=== PATIENT | male | born 1955 | race Caucasian/White ===

== ENCOUNTER 2018-01-31 16:20 | Emergency (ER) | payer BC, SELFPAY ==
[2018-01-31] VITALS (24 sets, daily range): BP systolic 139–168; BP diastolic 78–135; PULSE 62–73; RESP 6–16; TEMP 36.7; O2SAT 97–100
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
[2018-01-31] MEDS: Ibuprofen 600 MG TAB PO (18:20)
== END 2018-01-31 19:40 | disposition home or self-care (01) ==
PROVIDERS: Emergency Provider Student in an Organized Health Care Education/Training Program; PCP Family Medicine Adult Medicine
DX: S00.81XA Abrasion of other part of head, initial encounter (principal); S13.4XXA Sprain of ligaments of cervical spine, initial encounter; J32.9 Chronic sinusitis, unspecified; V18.0XXA Pedal cycle driver injured in noncollision transport accident in nontraffic accident, initial encounter; Y93.55 Activity, bike riding
CPT/HCPCS: 36415; 99284; 70450; 70486; 72125; L0172

== ENCOUNTER 2021-12-13 15:38 | Outpatient (REF) | payer BC, SELFPAY ==
[2021-12-13 14:44] LABS: HCT 40.3 % (40.0-50.0); HGB 13.6 g/dL (13.5-17.5); MCH 31.9 pg (27.0-33.0); MCHC 33.7 % (32.0-36.0); MCV 95 fL (80-95); MPV 9.5 fL (8.0-11.0); Platelet Count 254 10^3/uL (130-400); RBC 4.26 10^6/uL (4.36-5.78); RDW 12.2 % (11.8-14.1); RDW-SD 42.5 fL; WBC 4.38 10^3/uL (4.4-10.8)
[2021-12-13 15:10] LABS: Anion Gap 3.9 mmol/L (3-11); BUN 12 mg/dL (7-18); CO2 33.1 mmol/L (21.0-32.0); CREATININE 0.7 mg/dL (0.70-1.30); Calcium 8.8 mg/dL (8.5-10.1); Calculated LDL 86 mg/dL (<100); Chloride 103 mmol/L (98-107); Cholesterol 158 mg/dL (<200); Glucose 88 mg/dL (74-106); HDL Cholesterol 61 mg/dL (40-60); Potassium 4.4 mmol/L (3.5-5.1); Sodium 140 mmol/L (136-145); Triglyceride 58 mg/dL (<150)
[2021-12-14 09:37] LABS: PSA, Screening 2.5 ng/mL (<=4.5)
== END 2021-12-13 15:39 | disposition home or self-care (01) ==
LOC: NCHCN 15:38
PROVIDERS: PCP Physician Assistant; Visit Provider Physician Assistant
DX: Z00.00 Encounter for general adult medical examination without abnormal findings (principal); R13.10 Dysphagia, unspecified; M25.774 Osteophyte, right foot; Z12.5 Encounter for screening for malignant neoplasm of prostate; Z13.220 Encounter for screening for lipoid disorders
CPT/HCPCS: 80048; 80061; 84153; 85027

== ENCOUNTER → 2021-12-15 01:57 | Outpatient (CLI) | payer BC, SELFPAY ==
--- NOTE | 2021-12-15 | DI.RAD_ITS ---
Exam(s) XR FOOT RT COMPLETE EXAM: XR FOOT RT COMPLETE CLINICAL HISTORY: RT FOOT PAIN, M79.671,BONY PROTRUBERANCE OVER TALUS. TECHNIQUE: 2D digital imaging was performed of the right foot. Three images were obtained. AP, obl ique and lateral views were obtained. COMPARISON: No previous for comparison. FINDINGS: BONES: No acute fracture is present. No bony destructive lesion is seen. There is a spur on the dorsa l aspect of the distal talus. On the lateral view there are findings raising the question of a taloc alcaneal coalition. JOINTS: No dislocation present. Hypertrophic changes are seen at the 1st tarsometatarsal joint. SOFT TISSUE: Normal. IMPRESSION: 1. Moderate-sized spur arising from the dorsal aspect of the distal talus. 2. Findings suspicious for talocalcaneal coalition. A CT scan of the foot may be obtained for furthe r evaluation. DATA REPOSITORY: RADIATION DOSE DELIVERED:
== END ==
PROVIDERS: PCP Physician Assistant; Visit Provider Physician Assistant
DX: M77.9 Enthesopathy, unspecified (principal); M79.671 Pain in right foot
CPT/HCPCS: 73630

== ENCOUNTER 2022-12-27 16:59 | Outpatient (REF) | payer MEDICARE, SELFPAY ==
[2022-12-27 17:02] LABS: Anion Gap 5.3 mmol/L (3-11); BUN 13 mg/dL (7-18); CO2 30.7 mmol/L (21.0-32.0); CREATININE 0.8 mg/dL (0.70-1.30); Calculated LDL 91 mg/dL (<100); Chloride 106 mmol/L (98-107); Cholesterol 165 mg/dL (<200); Estimated GFR 98.83 (mL/min/1.73m2); Glucose 91 mg/dL (74-106); HDL Cholesterol 67 mg/dL (40-60); Potassium 3.9 mmol/L (3.5-5.1); Sodium 142 mmol/L (136-145); Triglyceride 36 mg/dL (<150)
--- OUTSIDE RECORDS SUMMARY | 2022-12-27 17:04 | XMS_ITS | CCD ---
Author Name Unknown Address [address] [place] [address] [id number] Organization Unknown Address [address], [place] [id number] Care Team Providers Care Licensed Physical Therapy Assistant Name Role Phone HANG CORONADO Attending Physician [phone] [phone] HANG CORONADO Rounding (Secondary) Physicia n [phone] Vital Signs Unknown or Not Available. Allergies Unknown or Not Available. Procedures Unknown or Not Available. History of Immunizations Unknown or Not Available. Problems Unknown or Not Available. Results Unknown or Not Available. Active Medications Unknown or Not Available. Medications Administered During Visit Unknown or Not Available. Encounters Unknown or Not Available. Social History Unknown or Not Available. Patient Decision Aids Unknown or Not Available. Discharge Instructions You were admitted to [facility] on 12/04/2022 00:00 You were discharged from [facility] on 12/04/2022 00:00 Should you have any questions prior to discharge, please contact a member of your healthcare team. If you have left the hospital and have any questions, please contact your primary care physician. Chief Complaint and Reason For Visit Unknown or Not Available. Function Status Unknown or Not Available. Plan of Care Unknown or Not Available. Referral/Transition of Care Unknown or Not Available.
== END 2022-12-27 17:00 | disposition home or self-care (01) ==
LOC: NCHCN 16:59
PROVIDERS: PCP Physician Assistant; Visit Provider Physician Assistant
DX: Z00.00 Encounter for general adult medical examination without abnormal findings (principal); Z12.5 Encounter for screening for malignant neoplasm of prostate
CPT/HCPCS: 80048; 80061; 84153

== ENCOUNTER 2023-10-17 11:23 | Outpatient (REF) | payer MEDICARE, SELFPAY ==
[2023-10-17 13:48] LABS: HCT 42.2 % (40.0-50.0); HGB 13.9 g/dL (13.5-17.5); MCHC 32.9 % (32.0-36.0); MCV 97 fL (80-95); MPV 10.3 fL (8.0-11.0); Platelet Count 165 10^3/uL (130-400); RBC 4.35 10^6/uL (4.36-5.78); RDW 13.2 % (11.8-14.1); RDW-SD 47.4 fL; WBC 3.57 10^3/uL (4.4-10.8)
[2023-10-17 14:10] LABS: Anion Gap 9.9 mmol/L (3-11); BUN 13 mg/dL (7-18); CO2 30.1 mmol/L (21.0-32.0); CREATININE 0.8 mg/dL (0.70-1.30); Calcium 9.3 mg/dL (8.5-10.1); Calculated LDL 86 mg/dL (<100); Chloride 105 mmol/L (98-107); Cholesterol 172 mg/dL (<200); Estimated GFR 98.21 (mL/min/1.73m2); Glucose 85 mg/dL (74-106); HDL Cholesterol 78 mg/dL (40-60); Potassium 4.2 mmol/L (3.5-5.1); Sodium 145 mmol/L (136-145); Triglyceride 41 mg/dL (<150)
[2023-10-17 23:34] LABS: PSA, Screening 3.6 ng/mL (<=4.5)
== END 2023-10-17 11:24 | disposition home or self-care (01) ==
LOC: NCHCN 11:23
PROVIDERS: PCP Physician Assistant; Visit Provider Physician Assistant
DX: I10 Essential (primary) hypertension (principal)
CPT/HCPCS: 80048; 80061; 84153; 85027

== ENCOUNTER 2023-12-04 14:47 | Outpatient (CLI) | payer MEDICARE, SELFPAY ==
--- NOTE | 2023-12-04 13:30 | DI.RAD_ITS ---
Exam(s) XR ELBOW LT COMPLETE EXAM: XR ELBOW LT COMPLETE CLINICAL HISTORY: elbow pain. TECHNIQUE: 2D digital imaging was performed. Three views. COMPARISON: No exams were available for comparison FINDINGS: BONES: No acute fracture is present. No bony destructive lesion is seen. Bony density seen posterior to the olecranon is nonunited but appears chronic. Spurring noted at both epicondyles. Spurring at coronoid process.. JOINTS: The elbow is normally aligned. No joint effusion is seen. SOFT TISSUE: Normal. IMPRESSION: Bony fragment is adjacent to olecranon appears chronic. DATA REPOSITORY: RADIATION DOSE DELIVERED:
== END 2023-12-04 14:48 | disposition home or self-care (01) ==
LOC: DIORS 14:48
PROVIDERS: PCP Physician Assistant; Referring Provider Physical Therapist; Visit Provider Student in an Organized Health Care Education/Training Program
DX: S46.312A Strain of muscle, fascia and tendon of triceps, left arm, initial encounter; X58.XXXA Exposure to other specified factors, initial encounter
CPT/HCPCS: 99203; 73080

== ENCOUNTER → 2023-12-18 02:23 | Outpatient (CLI) | payer MEDICARE, SELFPAY ==
--- NOTE | 2023-12-18 06:45 | DI.MRI_ITS ---
Exam(s) MR UPPER JOINT LT WO EXAM: MR UPPER JOINT LT WO CLINICAL HISTORY: further evaluation of triceps insertion,FX WITH GAP,RUPTURE LT TRICEPS TEND TECHNIQUE: Multiplanar multisequence MRI was performed without intravenous contrast. COMPARISON: CR XR ELBOW LT COMPLETE from 12/04/2023 FINDINGS: MARROW: There is intraosseous edema evident within the posterior aspect of the olecranon fossa as wel l as within an adjacent but separate osteophytic density corresponding to what is seen on recent x-ra ys and what is probably an avulsed enthesophyte at this level. See below TRICEPS discussion. Radial head appears unremarkable. Capitellum unremarkable. Coronoid process of the proximal ulna ap pears unremarkable. ELBOW JOINT: There is no evidence of elbow joint effusion.No significant cartilage loss nor osteochon dral defect and there is no evidence of loose intra-articular body. There are no osteophytes. EPICONDYLES: Some increased signal is seen in the common extensor tendon adjacent to the lateral epic ondyle consistent mild epicondylitis. ULNAR COLLATERAL LIGAMENT: The anterior band which extends from the medial epicondyle to the sublime tubercle of the coronoid process of the ulna is intact. This structure is the strongest ligament in t he elbow and is the main opponent to severe valgus stress. RADIAL COLLATERAL LIGAMENT: Intact TENDONS: The biceps tendon is intact. The brachialis tendon is intact. Triceps tendon: There is an osteophytic density in the distal triceps tendon which exhibits intraosse ous edema and there is T2 bright signal within the distal triceps tendon consistent with partial tear ing on its medial aspect. I suspect that this is an avulsed enthesophyte at this level. The lateral aspect of the tendon attachment to the posterior olecranon on appears intact as does the most medial aspect of the tendon. The central aspect of the tendon appears torn at the attachment site to the p osterior olecranon.. CUBITAL TUNNEL/ULNAR NERVE: The ulnar nerve appears unremarkable beneath the cubital tunnel retinacul um/ arcuate ligament and posterior to the medial epicondyle. There is no evidence of arthritic spur arising from the epicondyle nor olecranon causing impingement on the ulnar nerve. There is no eviden ce of accessory anconeus muscle causing impingement at this level. There is also no evidence of soft tissue mass nor ganglia on cyst causing impingement at this level. IMPRESSION: 1. Main findings are in the posterior aspect of the elbow where there is tear signal within the dista l triceps tendon at its attachment to the posterior olecranon on. The most medial and lateral aspect s of the triceps tendon still appear attached to the posterior aspect of the olecranon fossa. The ce ntral aspect of the tendon attachment (which is associated with the osteophytic density exhibits tear signal. There is also increased signal within the actual osteophytic density and interposed between this osteophytic density and the parent bone of the posterior olecranon. Appearance is most probabl y that of a posterior enthesophyte at this level which was avulsed and on to which the central aspect of the triceps tendon attaches. There is no retraction of the tendon. 2. Biceps tendon is intact. 3. Findings of mild lateral epicondylitis incidentally noted. DATA REPOSITORY:
== END ==
PROVIDERS: PCP Physician Assistant; Visit Provider Student in an Organized Health Care Education/Training Program
DX: S46.312A Strain of muscle, fascia and tendon of triceps, left arm, initial encounter (principal); M77.10 Lateral epicondylitis, unspecified elbow
CPT/HCPCS: 73221

== ENCOUNTER → 2023-12-19 13:28 | Outpatient (BNVA) | payer MEDICARE, SELFPAY | PROVIDERS: PCP Physician Assistant; Referring Provider Physician Assistant; Visit Provider Student in an Organized Health Care Education/Training Program | DX: S46.312A Strain of muscle, fascia and tendon of triceps, left arm, initial encounter (principal); X58.XXXA Exposure to other specified factors, initial encounter | CPT/HCPCS: 99213 ==

== ENCOUNTER 2024-01-11 09:36 | Day surgery (SDC) | payer MEDICARE, SELFPAY ==
--- NOTE | 2024-01-10 18:27 | W.ANESPRE ---
General Info Date of Service Date Performed: 01/11/24 Height: 6 ft 3 in Weight: 85.275 kg Body Mass Index (BMI): 23.5 Surgical Procedure: Operation Date: 01/11/24 10:25 Proposed Procedure Side Surgeon p Distal Triceps Tendon Repair Left Bernard Amaral MD Meds Allergies and Home Medications Allergies Allergy/AdvReac Type Severity Reaction Status Date / Time sulfamethoxazole (From AdvReac Intermediate fever Verified 01/10/24 11:59 Bactrim) trimethoprim (From Bactrim) AdvReac Intermediate fever Verified 01/10/24 11:59 Home Medication ?Medication ?Instructions ?Recorded naproxen 250 mg tablet 250 mg PO BID PRN 01/26/21 multivitamin 1 tab PO DAILY 02/27/22 omeprazole 40 mg capsule,delayed 40 mg PO DAILY 01/01/23 release fluticasone propionate 50 2 spray intranasal DAILY #16 grams 04/30/23 mcg/actuation nasal spray,suspension (Flonase Allergy Relief) lisinopril 5 mg tablet 5 mg PO DAILY 12/04/23 Current Visit Medications: Current Medications Generic Name Dose Route Start Last Admin Trade Name Freq PRN Reason Stop Dose Admin Ringer's Solution 1,000 mls @ 30 mls/hr 01/11/24 06:00 IV 01/11/24 23:59 INFUSION ROCKY Cefazolin Sodium/Dextrose 2 gm in 50 mls @ 100 mls/hr 01/11/24 06:00 Ancef Duplex IVPB 01/11/24 23:59 PREOP ROCKY Tranexamic Acid/Sodium Chloride 1,000 mg in 100 mls @ 600 mls/hr 01/11/24 06:00 IVPB 01/11/24 23:59 PREOP ROCKY IV Miscellaneous Supplies 1 each 01/11/24 06:00 Iv Access IV 01/11/24 23:59 DIRECTED ROCKY Sodium Chloride 0 ml 01/11/24 06:00 Normal Saline Flush 10 Ml Syr IV 01/11/24 23:59 PRN PRN Sodium Chloride 0 ml 01/11/24 06:00 Normal Saline 10 Ml Vial IJ 01/11/24 23:59 DIRECTED PRN Sterile Water 0 ml 01/11/24 06:00 Water,Injection,Sterile 10 Ml Vial IJ 01/11/24 23:59 DIRECTED PRN PFSH Active Problems Active Problems: Problem Status Onset Code Rupture of left triceps tendon Acute S46.312A Left elbow pain Acute M25.522 Plantar wart Acute B07.0 Pulsatile tinnitus, left ear Acute H93.A2 Medical History Medical History Impacted cerumen, left ear Nasal obstruction Obstructive sleep apnea syndrome Chronic disease of ear BPH (benign prostatic hyperplasia) GERD (gastroesophageal reflux disease) Sensorineural hearing loss (SNHL) Mixed hearing loss, bilateral Central perforation of tympanic membrane, left ear Chronic rhinitis Dysfunction of right eustachian tube Surgical History Surgical History Hx of neck surgery left mastoidectomy Hx of esophagogastroduodenoscopy Hx of repair of rotator cuff Hx of Achilles tendon repair History of tonsillectomy and adenoidectomy History of ear surgery right ossicular reconstruction with cartilage graft tympanoplasty Hx of myringotomy with PE tubes bilaterally 1965 Tobacco Smoking/Tobacco Use Status: Never Alcohol Alcohol Intake: never Substance Use Substance use: Never Substance use type: does not use Vital Signs and Lab Results Vital Signs Most Recent Vital Signs in EMR: Temp Pulse Resp BP Pulse Ox 36.5 C 63 16 142/91 H 100 01/11/24 09:38 01/11/24 09:38 01/11/24 09:38 01/11/24 09:38 01/11/24 09:38 Lab Results Blood Type / Crossmatch: No Data to Display Complete Blood Count: No Data to Display Complete Metabolic Panel: No Data to Display Liver Function Panel: No Data to Display Coagulation Panel: No Data to Display Cardiac Panel: No Data to Display Arterial Blood Gas: No Data to Display Venous Blood Gas: No Data to Display Pancreas Panel: No Data to Display Thyroid Panel: No Data to Display Infectious Disease: No Data to Display Blood Cultures: No Data to Display Toxicology Panel: No Data to Display Anesthesia Assessment and Plan Anesthesia History Personal History: Unknown Anesthesia History Family History: No Family History of Anesthesia Complications Exercise Tolerance Exercise Tolerance: Metabolic Equivalents>4 Cardiac & Pulmonary Exam Cardiac Exam: Normal S1/S2 Heart Sounds Pulmonary Exam: Clear Bilateral Breath Sounds Implantable Cardiac Device Does patient have a Pacemaker or an ICD?: No Airway Exam Known Difficult Airway: No Mallampati Class: 4 Mouth Opening: Narrow (< 3cm) Thyromental Distance: Less than 3 cm Neck Range of Motion: Full ROM Neck Circumference: Normal Teeth Condition: Normal Dentition ASA Classification ASA Score: ASA 2 Emergency Case?: No NPO Status NPO Status: NPO Clears >2 hours, Solids >8 hours Anesthesia Plan Resuscitation Status: Full Code Anesthesia Technique: General Anesthesia Airway Planned: Endotracheal Tube Pain Management: Surgeon and patient request nerve block Monitors Used: Standard Monitors Preoperative Comments:: 68 yo male for tricep repair Sig PMHx: HTN (lisinopril), MITZI, GERD (omeprazole. well controlled, but sleeps with a wedge), never smoker/etoh. Plan: GAETT, supraclavicular block.
[2024-01-11] VITALS (29 sets, daily range): BP systolic 123–179; BP diastolic 74–93; PULSE 57–82; RESP 8–20; TEMP 35.8–36.5; O2SAT 95–100; BMI 23.5
--- NOTE | 2024-01-11 07:19 | W.PM.DSUDISC ---
Date of service: 01/11/24 Time of Service: 14:00 Discharge Plan Disposition Patient Disposition: Home Condition: Stable Discharge Details Attending Provider: Bernard Amaral Primary Care Provider: Maurisio Mesa Home Meds and New Rx's Prescriptions: New naproxen 250 mg tablet 250 - 500 mg PO BID PRNQty: 30 0RF Rx Instructions: take with a meal oxycodone 5 mg tablet 5 - 10 mg PO Q4H MDD 30 mg PRN (Reason: moderate to severe pain) Qty: 12 0RF Continued fluticasone propionate [Flonase Allergy Relief] 50 mcg/actuation spray,suspension 2 spray intranasal DAILY Qty: 16 12RF Rx Instructions: administer into each nostril lisinopril 5 mg tablet 5 mg PO DAILY naproxen 250 mg tablet 250 mg PO BID PRN multivitamin Tablet 1 tab PO DAILY omeprazole 40 mg capsule,delayed release(DR/EC) 40 mg PO DAILY Discharge Instructions Additional Instructions: Surgery: Left distal triceps tendon repair Activity: Non-weightbearing left upper extremity for 6 weeks. Maintain elbow bent about 90 degrees in splint until follow-up. Encourage wrist, hand, and finger range of motion to prevent stiffness and improve circulation. Recommend elevation to minimize swelling and discomfort. Transition to hinged elbow brace at follow-up. A physical therapy prescription will be sent to start in about 3 weeks. Protocol? No ACTIVE elbow extension for 6 weeks Gradually increase flexion about 10 degrees per week from 90 degrees at week 2 to full flexion around postop week 8 Start strengthening at 10-12 weeks postop (isometrics okay in full extension after 8 weeks) Concentric strengthening at 3 months, isometric at 4 months, and sports around 6 months postop. Prescriptions: Naproxen 250 mg take 1-2 every 12 hours with a meal as needed for moderate pain Oxycodone 5 mg take 1-2 every 4-6 hours as needed for severe pain You may use xzoo-qib-bxemvyn Tylenol (acetaminophen) as needed for mild pain. These pain medications may be taken all at once or in different combinations as needed. Also, recommend Colace (docusate) as a stool softener as surgery and pain medicine cause constipation. You may try mjry-ihz-thgbajf diphenhydramine (Benadryl) 25-50 mg nightly as a sleep aid Dressings: Leave splint and dressing in place until follow-up. Keep clean and dry at all times. You may loosen/adjust Stewart bandage as as needed for comfort. Follow-up: 10-[address] Amaral You may take off the leg compression stockings this evening at home. You may also leave them on a few days longer if you have a history of leg swelling or edema. Let us know right away if you develop any redness, drainage, fevers, chest pain, or trouble breathing. Do not drink alcohol or drive for at least 24 hours after anesthesia. Please call the office during business hours with any questions or concerns. Stand Alone Forms: Anesthesia Discharge Inst., Anes.Nerve Block Instructions, Adeel Granado (DSU) Referrals: Bernard Amaral MD [ [facility] STAFF PHYSICIAN] - 01/22/24 1:30 pm Discharge Orders Discharge Orders: Discharge Order (Routine); Ordered 01/11/24 Ordered By: Stephanie Teague DS: Diagnosis Discharge Diagnosis (1) Rupture of left triceps tendon: Status: Acute
--- NOTE | 2024-01-11 08:20 | ROE_ITS ---
Date of service: 01/11/24 Time of Service: 11:30 Operative Note Operative Note DATE OF PROCEDURE: 01/11/24 PRE-OP DIAGNOSIS: 1. Left elbow High-grade distal triceps tendon rupture through enthesophyte fracture 2. Olecranon bursitis POST-OP DIAGNOSIS: same PROCEDURE: 1. Left elbow distal triceps tendon repair, CPT #93921 2. Excision of olecranon bursa, CPT # 76512 SURGEON: Bernard Amaral [employer] MACHINE OPERATOR: Stephanie Teague ANESTHESIA TYPE: Local By Surgeon, General LMA/ETT and Primary Nerve Block Refer to Anesthesia Record ESTIMATED BLOOD LOSS: 5 COMPLICATIONS: None Patient was transported to: PACU Patient's condition: stable Implants: 4.75mm Arthrex biocomposite knotless swivelock x1 Indications: Please see complete medical record for details. Findings: Large olecranon enthesophyte fracture causing 50-75%+ distal triceps tendon disruption centrally and superficially from the olecranon. Moderate overlying olecranon bursitis. Procedure Description: In the operating room, general anesthesia was induced. The patient was positioned lateral on the operating room table. All bony prominences were well- padded. Preoperative antibiotics were administered. The Left elbow was prepped and draped in the usual sterile fashion. The correct patient, procedure, and side of the procedure were all verified prior to incision. A longitudinal incision was preinjected with 30 cc of 0.25 bupivacaine containing epinephrine about the distal triceps, curving radially around the obvious olecranon bony prominence, and then extending distally in line with the ulna slightly into the proximal forearm. Skin was opened exposing a moderately abundant and inflamed olecranon bursa. The margin of the bursa were dissected out and the bursitis was removed. The enthesophyte fracture was readily ident ified and separate from the remainder of the olecranon. The distal triceps was intact to this large bony fragment. Sharp dissection was used to shell out this piece of bone while maintaining triceps tendon length for repair. The relatively large fracture fragment was removed in entirety and about 2cm long by 15 mm wide by 5-8 mm thick. The olecranon was then smoothed and contoured to remove any residual dorsal bony prominences as well as medially and laterally. The triceps tendon was debrided lightly to good tissue quality and the central area of defect on the insertion on the olecranon was prepared and abraded to optimize bone and tendon healing. An Arthrex suture tape was started deeply in the tendon over the repair footprint and whipstitched proximally and then across the tendon and back down distally exiting at the footprint with the other tail. A second suture tape was run more superficially about the defect broadly medial to lateral with the tails exiting centrally deeply. The 4 suture tails had good tissue hold and reduction of the tendon to the prepared bony bed. The tendon was retracted with the sutures, the central part of the tendon footprint was prepared for the suture anchor with the 2.5 mm drill to the 20 mm depth followed by the tap. The triceps repair sutures were then loaded on the 4.75 mm SwiveLock anchor, which was deployed with excellent tension and fixation strength on the tendon. The remaining in the knotless repair mechanism was used to minimize the residual tendon defect owing to the large fragment excision incorporating the superficial tissue from the medial and lateral and then shuttled back through the knotless anchor eyelet mechanism. The repair was inspected and stable past 90 degrees of elbow flexion without any displacement or gapping. Care was taken to ensure there was no residual bony or tendon prominence about the posterior elbow. The wound was copiously irrigated normal saline. Subcutaneous tissue was closed with 2-0 Monocryl buried interrupted. Skin was closed with 3-0 Monocryl subcuticular running. Steri-Strips applied across the incision followed by Xeroform, 4 x 4 gauze, and sterile soft roll. A long-arm posterior plaster splint was then applied maintaining the elbow in about 90 degrees of flexion and forearm in neutral rotation. The patient awoke from anesthesia without complication and was transferred to the recovery room in stable fashion.
[2024-01-11] MEDS: Lactated Ringers 1,000 ML 30 ML IV (10:19)
--- NOTE | 2024-01-11 10:54 | W.ANESNERVE ---
Nerve Block Single Injection Procedure Date and Time Date Performed: 01/11/24 Procedure Start: 10:40 Location Where Procedure Performed Procedure Location: Day Surgery Unit Reason Performed: Postoperative Analgesia Requesting Provider: Bernard Amaral Timeout Performed Timeout Performed: Yes Monitoring Used ECG, Blood Pressure and SpO2 Sterility Sterility: Hand Hygiene, Surgical Cap, Surgical Mask, Sterile Gloves and Chlorhexidine Sedation Given During Procedure Sedation Given (Indicate Dose Given): Versed IV Dose:: 2 mg Patient Mental Status Patient Mental Status: Sedate with meaningful communication Nerve Block 1st Nerve Block: Laterality: Left Block Type: Supraclavicular Ultrasound Image Saved?: Yes Needle / Catheter Used: 100mm SonoPlex II Local Anesthetic Bolus (Indicate Dose Given): Lidocaine used for local infiltration of skin, Bupivacaine 0.5% Dose:: 10 mL and Exparel Dose:: 10 mL Additives (Indicate Dose Given): None Ultrasound: Sterile probe cover and gel used Nerve Stimulator: Supplement to Ultrasound use and No twitch or parasthesia noted < 0.5 mA Paresthesia: None Procedure Tolerated: No Complications Procedure Outcome: Successful Performed By: All Marsh
[2024-01-11] MEDS: ceFAZolin 2 GM/50 ML BAG IVPB (11:08)
[2024-01-11] MEDS: TRANEXAMIC ACID/SOD. CHL. 1,000 MG/100 ML BAG 600 MG IVPB (11:12)
[2024-01-11] MEDS: Bupivacaine 0.25% Pres-Free W/EPI 30 ML VIAL (12:24)
--- NOTE | 2024-01-11 13:12 | W.ANESPOSTOP ---
Postoperative Evaluation Date, Time and Location Date Performed: 01/11/24 Time Performed: 13:12 Patient Location: PACU Vital Signs Most Recent Imported Vital Signs: Most Recent Vital Signs Temp Pulse Resp BP Pulse Ox 36.3 C L 64 20 133/81 100 01/11/24 13:06 01/11/24 11:00 01/11/24 11:00 01/11/24 11:00 01/11/24 11:00 Pain Score Most Recent Pain Score: Most Recent Pain Score Pain Level 0 01/11/24 13:06 Assessment Mental Status: Awake (Alert & Oriented to Patient Baseline) Airway and Respiratory Function: Patent airway with normal (patient baseline) respiratory exam Cardiovascular Function: Hemodynamically Stable Hydration Status: Adequately Hydrated Nausea & Vomiting: No Nausea or Vomiting Pain: Pain is tolerable per patient Peripheral Nerve Block: Regional nerve block not resolved at time of post operative discharge
== END 2024-01-11 14:20 | disposition home or self-care (01) ==
LOC: SUR 09:37
PROVIDERS: PCP Physician Assistant; Visit Provider Student in an Organized Health Care Education/Training Program
PROC: (CPT 24341; principal; 2024-01-11 10:15)
DX: S46.312A Strain of muscle, fascia and tendon of triceps, left arm, initial encounter (principal); X58.XXXA Exposure to other specified factors, initial encounter; M70.22 Olecranon bursitis, left elbow; M77.8 Other enthesopathies, not elsewhere classified
CPT/HCPCS: 24342; 24105; 76942; C9290; J0665; J0690; J1100; J2250; J2405; J2704; J3475

== ENCOUNTER → 2024-01-22 13:32 | Outpatient (BNVA) | payer MEDICARE, SELFPAY | PROVIDERS: PCP Physician Assistant; Visit Provider Student in an Organized Health Care Education/Training Program | DX: Z47.89 Encounter for other orthopedic aftercare (principal) ==

== ENCOUNTER → 2024-03-18 13:04 | Outpatient (BNVA) | payer MEDICARE, SELFPAY | PROVIDERS: PCP Physician Assistant; Visit Provider Student in an Organized Health Care Education/Training Program | DX: Z47.89 Encounter for other orthopedic aftercare (principal); R20.0 Anesthesia of skin; G56.22 Lesion of ulnar nerve, left upper limb | CPT/HCPCS: 99024 ==

== ENCOUNTER 2024-04-29 15:15 | Outpatient (REF) | payer MEDICARE, SELFPAY ==
--- NOTE | 2024-04-29 12:05 | SKI_PTH ---
PATIENT: Lito Hamilton LOC: [facility] U#:[id number] AGE/SX: 68/M ROOM: RE04/29/[address]: Maurisio Mesa : 1955 BED: DIS: 04/29/2024 SPEC #: [id number] RECD: 04/29/24 18:03 STATUS: ANÍBAL REWei #: [id number] ARMAAN: 04/29/24 12:[address]: Maurisio Mesa DEPT: Surgical Specimen RECD BY: Lisa Borja Tissues: 1 - SKIN BIOPSY(SHAVE/PUNCH) Procedures: SKIN LEVEL 4 Comments: [id number]
== END 2024-04-29 15:16 | disposition home or self-care (01) ==
LOC: NCHCN 15:15
PROVIDERS: PCP Physician Assistant; Visit Provider Physician Assistant
DX: L82.1 Other seborrheic keratosis (principal); L98.8 Other specified disorders of the skin and subcutaneous tissue
CPT/HCPCS: 88305

== ENCOUNTER → 2024-05-20 10:03 | Outpatient (BNVA) | payer MEDICARE, SELFPAY | PROVIDERS: PCP Physician Assistant; Referring Provider Physician Assistant; Visit Provider Student in an Organized Health Care Education/Training Program | DX: Z47.89 Encounter for other orthopedic aftercare (principal); M25.612 Stiffness of left shoulder, not elsewhere classified | CPT/HCPCS: 99213 ==

== ENCOUNTER 2024-08-12 14:45 | Outpatient (CLI) | payer MEDICARE, SELFPAY ==
--- NOTE | 2024-08-12 11:19 | DI.RAD_ITS ---
Exam(s) XR ELBOW LT LIMITED EXAM: XR ELBOW LT LIMITED CLINICAL HISTORY: F/U SURGERY. TECHNIQUE: 2D digital imaging was performed. Three views. COMPARISON: MR MR UPPER JOINT LT WO from 12/18/2023 FINDINGS: BONES: No acute fracture is present. No bony destructive lesion is seen. Spurring at the epicondyle s. Prominent spurring noted at the olecranon. Small enthesophyte at the Achilles insertion. JOINTS: The elbow is normally aligned. No joint effusion is seen. Joint spaces are maintained. SOFT TISSUE: Soft tissue swelling over the olecranon. IMPRESSION: Spurring at the olecranon both epicondyles. DATA REPOSITORY: RADIATION DOSE DELIVERED:
== END 2024-08-12 14:46 | disposition home or self-care (01) ==
LOC: DIORS 14:46
PROVIDERS: PCP Physician Assistant; Referring Provider Physician Assistant; Visit Provider Student in an Organized Health Care Education/Training Program
DX: M77.11 Lateral epicondylitis, right elbow; S46.312D Strain of muscle, fascia and tendon of triceps, left arm, subsequent encounter; X58.XXXD Exposure to other specified factors, subsequent encounter
CPT/HCPCS: 99214; 73070

== ENCOUNTER 2024-10-08 17:07 | Outpatient (REF) | payer MEDICARE, SELFPAY ==
[2024-10-08 15:28] LABS: HCT 41.9 % (40.0-50.0); HGB 13.9 g/dL (13.5-17.5); MCHC 33.2 % (32.0-36.0); MCV 96 fL (80-95); MPV 9.7 fL (8.0-11.0); Platelet Count 230 10^3/uL (130-400); RBC 4.35 10^6/uL (4.36-5.78); RDW 12.3 % (11.8-14.1); RDW-SD 44.2 fL; WBC 5.54 10^3/uL (4.4-10.8)
[2024-10-08 15:48] LABS: ALT 31 U/L (16-63); AST 27 U/L (15-37); Alkaline Phosphatase 92 U/L (46-116); Anion Gap 9.4 mmol/L (3-11); BUN 21 mg/dL (7-18); Bilirubin, Total 0.4 mg/dL (0.2-1.0); CO2 29.6 mmol/L (21.0-32.0); Calcium 9.4 mg/dL (8.5-10.1); Chloride 107 mmol/L (98-107); Estimated GFR 83.01 (mL/min/1.73m2); Glucose 91 mg/dL (74-106); Potassium 4.5 mmol/L (3.5-5.1); Sodium 146 mmol/L (136-145); Total Protein 6.9 g/dL (6.4-8.2)
[2024-10-08 22:46] LABS: PSA, Screening 3.6 ng/mL (<=4.5)
== END 2024-10-08 17:08 | disposition home or self-care (01) ==
LOC: NCHCN 17:07
PROVIDERS: PCP Physician Assistant; Visit Provider Physician Assistant
DX: I10 Essential (primary) hypertension (principal); Z12.5 Encounter for screening for malignant neoplasm of prostate; D72.819 Decreased white blood cell count, unspecified
CPT/HCPCS: 80053; 84153; 85027

== ENCOUNTER → 2024-11-25 13:33 | Outpatient (BNVA) | payer MEDICARE, SELFPAY | PROVIDERS: PCP Physician Assistant; Referring Provider Physician Assistant; Visit Provider Student in an Organized Health Care Education/Training Program | DX: S46.312A Strain of muscle, fascia and tendon of triceps, left arm, initial encounter (principal); X50.3XXA Overexertion from repetitive movements, initial encounter; Y93.73 Activity, racquet and hand sports | CPT/HCPCS: 99213 ==

== ENCOUNTER 2024-12-02 10:23 | Outpatient (CLI) | payer MEDICARE, SELFPAY ==
--- NOTE | 2024-12-02 09:45 | DI.MRI_ITS ---
Exam(s) MR UPPER JOINT LT WO EXAM: MR UPPER JOINT LT WO CLINICAL HISTORY: rupture of lt triceps tendon, S46.312A-strain of muscle, fascia and tendon,. TECHNIQUE: Multiplanar multisequence MRI was performed. COMPARISON: Plain films 12 August 2024 and 04 December 2023 MRI 18 December 2023 FINDINGS: Exam is mildly limited by motion. Elbow joint: No joint effusion Bones: There is no fracture or contusion pattern. Evidence of prior triceps tendon repair at the olecranon. No abnormal signal in this location Biceps tendon: Intact. No tendinosis. Brachialis tendon: Intact. No tendinosis. Common flexor tendons: Intact. No tendinosis. Common extensor tendons: Intact. No tendinosis. Triceps tendon: Evidence of prior surgery. Slightly increased T2 signal in the tendon in area of prior surgery could represent artifact. Soft tissues: Unremarkable. No abnormal signal within the triceps muscle. IMPRESSION: Prior triceps tendon repair. No evidence of significant tendon tear or muscle strain. DATA REPOSITORY:
== END 2024-12-02 10:43 ==
LOC: DI 10:24
PROVIDERS: PCP Physician Assistant; Visit Provider Student in an Organized Health Care Education/Training Program
DX: S46.312D Strain of muscle, fascia and tendon of triceps, left arm, subsequent encounter (principal); X58.XXXD Exposure to other specified factors, subsequent encounter
CPT/HCPCS: 73221

== ENCOUNTER → 2024-12-10 14:45 | Outpatient (BNVA) | payer MEDICARE, SELFPAY | PROVIDERS: PCP Physician Assistant; Referring Provider Physician Assistant; Visit Provider Student in an Organized Health Care Education/Training Program | DX: Z47.89 Encounter for other orthopedic aftercare (principal); S46.312D Strain of muscle, fascia and tendon of triceps, left arm, subsequent encounter; X58.XXXD Exposure to other specified factors, subsequent encounter | CPT/HCPCS: 99213 ==